=== PATIENT | male | born 1955 | race African-American/Black ===

== ENCOUNTER 2016-09-11 18:19 | Emergency (ER) | payer OTHER ==
--- NOTE | 2016-09-11 18:48 | ERRECORD ---
[facility] EMERGENCY RECORD HPI GENERAL (18:39 JLOY) CHIEF COMPLAINT: Patient presents for evaluation of Pt was brought in by the police for medical clearance. Pt with near non-stop profanities directed at the police and all medical staff who address him. Pt repeatedly yelling 'I refuse medical care'. Pt threatened the physician if he was examined. Pt with no visible or apparent difficulties or distress. PAST MEDICAL HISTORY (18:30 BDON) MEDICAL HISTORY: Notes: unknown immunization history, Past medical history includes gastrointestinal disease, cirrhosis, Hepatitis C, Past medical history includes history of hypertension. MALE SURGICAL HISTORY: possible colostomy....bag to abdomen ..patient refuses to answer questions or be assessed, Surgical history of hernia repair. PSYCHIATRIC HISTORY: No previous psychiatric history. SOCIAL HISTORY: Patient denies alcohol use, Patient has no smoking history, Patient currently uses drugs, abuses cocaine. KNOWN ALLERGIES No Known Allergies (Unconfirmed) No Known Drug Allergies CURRENT MEDICATIONS (18:27 BDON) unknown medication...patient not cooperative VITAL SIGNS (18:25 BDON) VITAL SIGNS: Resp: 18, Pain: 0, Time: 09/11/2016 18:25. PROBLEM LIST No recorded problems DIAGNOSIS (18:38 JLOY) FINAL: PRIMARY: ENC FOR OTHER GENERAL EXAMINATION. PRESCRIPTION No recorded prescriptions DISPOSITION PATIENT: Disposition Type: Eloped, Disposition: Against Medical Advice. (18:38 JLOY) Patient left the department. (19:01 BDON) Ferrer: BDON=HOLLI Bergeron, Mary JLOY=MD Kalen, Jerrell &a-1R&a+25V*p+0X*[id number]*c202B*c15G*c2P*p-0X&a-25V&a+1R Name: Bret Castro : 1955 M61 MedRec: [id number] AcctNum: [id number] Prepared: Se Sep 11, 2016 19:08 by Interface Page 1 of 1 pMD MTDD
--- NOTE | 2016-09-11 18:53 | PICIS ---
[facility] EMERGENCY RECORD TRIAGE ([facility] Sep 11, 2016 18:26 BDON) PATIENT: NAME: Bret Castro, AGE: 61, GENDER: male, : Tue1955, TIME OF GREET: TueSep 11, 2016 18:19, PREFERRED LANGUAGE: Kazakh, ETHNICITY: Not or , ECODE BILLING MAP: [facility], SSN: [id number], Zip Code: [address], KG WEIGHT: 61.23, PHONE: , , , PERSON ID: [id number], PCP: unknown. ([facility] Sep 11, 2016 18:26 BDON) TRIAGE NOTES: Medical clearance for [place], fdc clearance. Refuses medical evaluation and vital signs Patient cussing consistently screaming. ([facility] Sep 11, 2016 18:26 BDON) COMPLAINT: MEDICAL CLEARANCE. ([facility] Sep 11, 2016 18:26 BDON) ADMISSION: URGENCY: 5 [facility] [address], ADMISSION SOURCE: Home, TRANSPORT: LAW ENFORCEMENT, BED: TRIAGE. ([facility] Sep 11, 2016 18:26 BDON) ASSESSMENT: Assessment: Medicial clearance for [place], to go to fdc. Currently cussing, screaming with eratic behavior. (18:30 BDON) TREATMENTS IN PROGRESS: Treatments given Prehospital: unknown. (18:30 BDON) PROVIDERS: TRIAGE NURSE: Mary Bergeron RN. ([facility] Sep 11, 2016 18:26 BDON) VITAL SIGNS: Resp 18, Pain 0, Time 09/11/2016 18:25. (18:25 BDON) PREVIOUS VISIT ALLERGIES: No Known Drug Allergies. ([facility] Sep 11, 2016 18:26 BDON) No Known Drug Allergies. (18:30 BDON) KNOWN ALLERGIES No Known Allergies (Unconfirmed) No Known Drug Allergies CURRENT MEDICATIONS (18:27 BDON) unknown medication...patient not cooperative VITAL SIGNS (18:25 BDON) VITAL SIGNS: Resp: 18, Pain: 0, Time: 09/11/2016 18:25. NURSING ASSESSMENT: ABDOMEN (18:42 BDON) CONSTITUTIONAL: Patient arrives ambulatory, Gait steady, Patient appears comfortable, Patient, combative, Patient alert, Skin normal in color, refuses treatment, assessment or evaluation. Patient is alert, cognizant of surroundings and making insulting but coherent commentary. He demonstrates no respiratory distress, no problems with coordination. He is angry and identifies the source of anger suggesting he is aware of circumstances but resistant of actions. NURSING PROCEDURE: DISCHARGE NOTE (18:56 BDON) &a-1R&a+25V*p+0X*[id number]*c202B*c15G*c2P*p-0X&a-25V&a+1R Name: Bret Castro : 1955 M61 MedRec: [id number] AcctNum: [id number] Prepared: Sat Sep 11, 2016 19:15 by Interface Page 1 of 3 pMD [facility] EMERGENCY RECORD DISCHARGE: Patient signed out against medical advice, Notes: removed from ER by [place] [employer], remains combative with offending comments and sexual acts. Patient did not sign AMA screaming. NURSING PROCEDURE: NURSE NOTES (18:38 BDON) NURSES NOTES: Notes: It is not appropriate to document the degrading language, including male and female anatomy with sexual acts. He spoke about my mother and grandmother including the [employer]. HPI GENERAL (18:39 JLOY) CHIEF COMPLAINT: Patient presents for evaluation of Pt was brought in by the police for medical clearance. Pt with near non-stop profanities directed at the police and all medical staff who address him. Pt repeatedly yelling 'I refuse medical care'. Pt threatened the physician if he was examined. Pt with no visible or apparent difficulties or distress. PAST MEDICAL HISTORY (18:30 BDON) MEDICAL HISTORY: Notes: unknown immunization history, Past medical history includes gastrointestinal disease, cirrhosis, Hepatitis C, Past medical history includes history of hypertension. MALE SURGICAL HISTORY: possible colostomy....bag to abdomen ..patient refuses to answer questions or be assessed, Surgical history of hernia repair. PSYCHIATRIC HISTORY: No previous psychiatric history. SOCIAL HISTORY: Patient denies alcohol use, Patient has no smoking history, Patient currently uses drugs, abuses cocaine. EVENTS TRANSFER: Triage to Emergency Triage. (18:26 BDON) Emergency Triage to Emergency Room -05. (18:27 BDON) Removed from Emergency Emergency Room -05. (19:01 BDON) PROBLEM LIST No recorded problems DIAGNOSIS (18:38 JLOY) FINAL: PRIMARY: ENC FOR OTHER GENERAL EXAMINATION. DISPOSITION PATIENT: Disposition Type: Eloped, Disposition: Against Medical Advice. (18:38 JLOY) Patient left the department. (19:01 BDON) PRESCRIPTION No recorded prescriptions &a-1R&a+25V*p+0X*l1435B*c202B*c15G*c2P*p-0X&a-25V&a+1R Name: Bret Castro : 1955 M61 MedRec: [id number] AcctNum: [id number] Prepared: Sat Sep 11, 2016 19:15 by Interface Page 2 of 3 pMD [facility] EMERGENCY RECORD IMAGING RETURN TO [facility]: Image captured from scanner. (18:47 EPIE) PHYSICIAN NOTES: Image captured from scanner. (18:54 BDON) *SUPPLY CHARGE SHEET: Image captured from scanner. (18:58 BDON) ADMIN DIGITAL SIGNATURE: MD Higuera Joshua. (18:42 JLOY) MD Higuera Joshua. (18:53 JLOY) HOLLI Bergeron Bettye. (18:59 BDON) HOLLI Bergeron Bettye. (19:01 BDON) Ferrer: BDON=HOLLI Bergeron Bettye EPIE=HOLLI Merino, Estella JLOY=MD Higuera Joshua &a-1R&a+25V*p+0X*h7833B*c202B*c15G*c2P*p-0X&a-25V&a+1R Name: Bret Castro : 1955 M61 MedRec: [id number] AcctNum: [id number] Prepared: Sat Sep 11, 2016 19:15 by Interface Page 3 of 3 pMD MTDD
== END 2016-09-11 18:56 | disposition home or self-care (01) ==
LOC: NAV ERS 18:19
DX: Z00.00 Encounter for general adult medical examination without abnormal findings (principal); I10 Essential (primary) hypertension; K74.60 Unspecified cirrhosis of liver; B19.20 Unspecified viral hepatitis C without hepatic coma

== ENCOUNTER 2016-10-12 15:21 | Emergency (ER) | payer OTHER, SELFPAY ==
[2016-10-12 16:08] LABS: #Basophils 0.1 thou/uL (0.0-0.2); #Eosinphils 0.3 thou/uL (0.0-0.7); #Lymphocytes 2.2 thou/uL (1.20-3.40); #Monocytes 0.9 thou/uL (0.11-0.59); #Neutrophils 5.2 thou/uL (1.40-6.50); %Basophils 1.4 % (0.0-1.0); %Eosinophils 3.4 % (0.0-10.0); %Lymphocytes 25.2 % (21.0-51.0); %Monocytes 10.2 % (0.0-10.0); Hematocrit 23.3 % (42.0-52.0); Mean Platelet Volume 5.3 fL (7.4-10.4); Red Blood Cell (RBC) Count 2.32 mill/uL (4.70-6.10); White Blood Cell (WBC) Count 8.7 thou/uL (4.8-10.8)
[2016-10-12 16:18] LABS: PTT 29.5 SEC (22.9-36.1); Prothrombin Time 15.5 SEC (12.0-14.7)
[2016-10-12 16:24] LABS: ALT (SGPT) 39 U/L (0-55); AST (SGOT) 62 U/L (5-34); Alkaline Phosphatase 77 U/L (40-150); Anion Gap 14 mmol/L (10-20); BUN (Urea Nitrogen) 41 mg/dL (8.4-25.7); Bilirubin, Total 0.8 mg/dL (0.2-1.2); Calc. Creatinine Clearance 0 mL/min (70-130); Calcium 7.3 mg/dL (7.8-10.44); Carbon Dioxide 23 mmol/L (22-29); Chloride 109 mmol/L (98-107); Estimated GFR-MDRD 36; Globulin 3.9 g/dL (2.4-3.5); Lipase 68 U/L (8-78); Protein, Total 5.6 g/dL (6.0-8.3)
[2016-10-12 16:25] LABS: Troponin I 0.012 ng/mL (< 0.028)
--- NOTE | 2016-10-12 16:28 | RAD ---
SEMIUPRIGHT PORTABLE CHEST ONE VIEW: 10/12/16 HISTORY: 61-year-old male with chest pain and shortness of breath. The exam is very lordotic. Inspiration is very poor. The right lateral chest wall and right costophr enic angle are not included on this study and are not evaluated. The heart size is within normal elena its for this projection and inspiration. No confluent pneumonia. IMPRESSION: Very poor inspiratory, very lordotic view of the chest without overt acute intrathoracic disease inv olving the visualized portion. The right costophrenic angle and right lower chest are not completely included on this study. POS: [facility]
== END 2016-10-12 16:43 ==
LOC: NAV ERS 15:21
DX: R07.89 Other chest pain (principal); I11.0 Hypertensive heart disease with heart failure; I50.9 Heart failure, unspecified
CPT/HCPCS: 71010; 80053; 82553; 83690; 83880; 84484; 85025; 85610; 85730; 93005

== ENCOUNTER 2016-10-12 22:37 | Emergency (ER) | payer OTHER, SELFPAY ==
[2016-10-12] MEDS ORDERED: Pantoprazole 40 MG VIAL ONE (22:55)
[2016-10-12] MEDS ORDERED: Sodium Chloride 0.9% 1,000 ML ONE (22:55)
[2016-10-12] MEDS ORDERED: Ondansetron HCl/PF 4 MG/2 ML Vial ONE (22:55)
[2016-10-12 23:41] LABS: #Basophils 0.1 thou/uL (0.0-0.2); #Eosinphils 0.2 thou/uL (0.0-0.7); #Lymphocytes 1.9 thou/uL (1.20-3.40); #Monocytes 0.9 thou/uL (0.11-0.59); #Neutrophils 5.5 thou/uL (1.40-6.50); %Basophils 1.5 % (0.0-1.0); %Eosinophils 2.9 % (0.0-10.0); %Lymphocytes 22.2 % (21.0-51.0); %Monocytes 10.2 % (0.0-10.0); Mean Platelet Volume 5.8 fL (7.4-10.4); Red Blood Cell (RBC) Count 2.49 mill/uL (4.70-6.10); White Blood Cell (WBC) Count 8.7 thou/uL (4.8-10.8)
[2016-10-12 23:49] LABS: ALT (SGPT) 37 U/L (0-55); AST (SGOT) 56 U/L (5-34); Alkaline Phosphatase 76 U/L (40-150); Anion Gap 11 mmol/L (10-20); BUN (Urea Nitrogen) 40 mg/dL (8.4-25.7); Bilirubin, Total 0.7 mg/dL (0.2-1.2); Calc. Creatinine Clearance 0 mL/min (70-130); Calcium 7.3 mg/dL (7.8-10.44); Carbon Dioxide 27 mmol/L (22-29); Chloride 108 mmol/L (98-107); Estimated GFR-MDRD 40; Globulin 3.8 g/dL (2.4-3.5); Lipase 48 U/L (8-78); Protein, Total 5.4 g/dL (6.0-8.3)
[2016-10-12 23:50] LABS: Troponin I 0.022 ng/mL (< 0.028)
[2016-10-13] MEDS ORDERED: Ondansetron HCl/PF 4 MG/2 ML Vial ONE (01:04)
== END 2016-10-13 01:17 | disposition short-term general hospital (02) ==
LOC: NAV ERS 22:37
DX: K92.2 Gastrointestinal hemorrhage, unspecified (principal); I11.0 Hypertensive heart disease with heart failure; I50.9 Heart failure, unspecified; K74.60 Unspecified cirrhosis of liver
CPT/HCPCS: 82272; 83690; 86850; 86900; 86901; 96361; 96374; 96375; 96376; C9113; J2270; J2405; J7050

== ENCOUNTER 2016-10-17 13:29 | Emergency (ER) | payer OTHER ==
[2016-10-18 02:42] LABS: ALT (SGPT) 50 U/L (0-55); AST (SGOT) 87 U/L (5-34); Alkaline Phosphatase 83 U/L (40-150); Anion Gap 13 mmol/L (10-20); BUN (Urea Nitrogen) 43 mg/dL (8.4-25.7); Bilirubin, Total 0.6 mg/dL (0.2-1.2); Calc. Creatinine Clearance 0 mL/min (70-130); Calcium 7.5 mg/dL (7.8-10.44); Carbon Dioxide 22 mmol/L (22-29); Chloride 112 mmol/L (98-107); Estimated GFR-MDRD 33; Globulin 3.8 g/dL (2.4-3.5); Protein, Total 5.6 g/dL (6.0-8.3)
[2016-10-18 02:43] LABS: Red Blood Cell (RBC) Count 2.44 mill/uL (4.70-6.10); White Blood Cell (WBC) Count 7.5 thou/uL (4.8-10.8)
[2016-10-18 02:45] LABS: #Basophils 0.1 thou/uL (0.0-0.2); #Eosinphils 0.2 thou/uL (0.0-0.7); #Lymphocytes 2.4 thou/uL (1.20-3.40); #Monocytes 0.9 thou/uL (0.11-0.59); #Neutrophils 3.8 thou/uL (1.40-6.50); %Basophils 1.7 % (0.0-1.0); %Eosinophils 2.1 % (0.0-10.0); %Lymphocytes 32.2 % (21.0-51.0); %Monocytes 12.5 % (0.0-10.0); Mean Platelet Volume 5.7 fL (7.4-10.4)
[2016-10-18 02:49] LABS: Methadone Not Detected (NotDetected); Methamphetamine Not Detected (NotDetected)
== END 2016-10-17 17:40 | disposition short-term general hospital (02) ==
LOC: NAV ERS 13:29
DX: F14.121 Cocaine abuse with intoxication with delirium (principal); D64.9 Anemia, unspecified; K29.70 Gastritis, unspecified, without bleeding
CPT/HCPCS: 80306; 80307; 93005

== ENCOUNTER 2016-11-03 02:17 | Emergency (ER) | payer OTHER, SELFPAY ==
[2016-11-03 02:55] LABS: Bacteria/HPF Rare-Few HPF (None Seen); Bilirubin Negative (Negative); Blood, Urine Trace (Negative); Glucose, Urine (Dipstick) Negative (Negative); Ketone, Urine Negative (Negative); Nitrite Negative (Negative); Protein, Urine (Dipstick) 100 mg/dL (Neg-Trace); RBC/HPF 0-3 HPF (0-3); Squamous Epithelial 0-3 HPF (0-3); Urobilinogen 0.2 mg/dL (0.2-1.0); WBC/HPF 0-3 HPF (0-3)
[2016-11-03 02:57] LABS: #Basophils 0.1 thou/uL (0.0-0.2); #Eosinphils 0.2 thou/uL (0.0-0.7); #Lymphocytes 1.6 thou/uL (1.20-3.40); #Monocytes 0.7 thou/uL (0.11-0.59); #Neutrophils 6.6 thou/uL (1.40-6.50); %Basophils 0.6 % (0.0-1.0); %Eosinophils 1.8 % (0.0-10.0); %Lymphocytes 17.3 % (21.0-51.0); %Monocytes 7.8 % (0.0-10.0); Hematocrit 24.3 % (42.0-52.0); Mean Platelet Volume 7.7 fL (7.4-10.4); Red Blood Cell (RBC) Count 2.53 mill/uL (4.70-6.10); White Blood Cell (WBC) Count 9.1 thou/uL (4.8-10.8)
[2016-11-03 03:08] LABS: Methadone Not Detected (NotDetected); Methamphetamine Not Detected (NotDetected)
[2016-11-03 03:12] LABS: ALT (SGPT) 51 U/L (0-55); AST (SGOT) 72 U/L (5-34); Alkaline Phosphatase 107 U/L (40-150); Anion Gap 14 mmol/L (10-20); BUN (Urea Nitrogen) 34 mg/dL (8.4-25.7); Bilirubin, Total 0.7 mg/dL (0.2-1.2); Calc. Creatinine Clearance 0 mL/min (70-130); Calcium 7.6 mg/dL (7.8-10.44); Carbon Dioxide 17 mmol/L (22-29); Chloride 116 mmol/L (98-107); Estimated GFR-MDRD 47; Globulin 4.2 g/dL (2.4-3.5); Protein, Total 6.4 g/dL (6.0-8.3)
[2016-11-03] MEDS ORDERED: Ciprofloxacin 500 MG TAB ONE (03:36)
[2016-11-03] MEDS ORDERED: Furosemide 40 MG TAB ONE (03:38)
== END 2016-11-03 03:50 ==
LOC: NAV ERS 02:17
DX: N39.0 Urinary tract infection, site not specified (principal); F14.10 Cocaine abuse, uncomplicated; I12.9 Hypertensive chronic kidney disease with stage 1 through stage 4 chronic kidney disease, or unspecified chronic kidney disease; N18.3 Chronic kidney disease, stage 3 (moderate)
CPT/HCPCS: 36415; 80053; 80306; 80307; 81003; 81015; 82140; 83880; 85025; 99283

== ENCOUNTER 2016-11-06 01:58 | Emergency (ER) | payer OTHER ==
[2016-11-06 03:07] LABS: #Basophils 0.1 thou/uL (0.0-0.2); #Eosinphils 0.2 thou/uL (0.0-0.7); #Lymphocytes 1.6 thou/uL (1.20-3.40); #Monocytes 0.5 thou/uL (0.11-0.59); #Neutrophils 3.2 thou/uL (1.40-6.50); %Basophils 1.5 % (0.0-1.0); %Lymphocytes 29.2 % (21.0-51.0); Anisocytosis SLIGHT = 6-15 cells (100X) (0-5/hpf); Hematocrit 20.3 % (42.0-52.0); Macrocytosis SLIGHT = 6-15 cells (100X) (0-5/hpf); Mean Platelet Volume 6.6 fL (7.4-10.4); Red Blood Cell (RBC) Count 2.14 mill/uL (4.70-6.10); White Blood Cell (WBC) Count 5.5 thou/uL (4.8-10.8)
[2016-11-06 03:11] LABS: ALT (SGPT) 36 U/L (0-55); AST (SGOT) 48 U/L (5-34); Alkaline Phosphatase 96 U/L (40-150); Anion Gap 10 mmol/L (10-20); BUN (Urea Nitrogen) 30 mg/dL (8.4-25.7); Bilirubin, Total 0.7 mg/dL (0.2-1.2); Calc. Creatinine Clearance 0 mL/min (70-130); Calcium 7.3 mg/dL (7.8-10.44); Carbon Dioxide 20 mmol/L (22-29); Chloride 117 mmol/L (98-107); Estimated GFR-MDRD 65; Globulin 3.6 g/dL (2.4-3.5); Lipase 147 U/L (8-78); Protein, Total 5.6 g/dL (6.0-8.3)
[2016-11-06 03:24] LABS: Bilirubin Negative (Negative); Blood, Urine Small (Negative); Glucose, Urine (Dipstick) Negative (Negative); Ketone, Urine Negative (Negative); Nitrite Negative (Negative); Protein, Urine (Dipstick) 100 mg/dL (Neg-Trace); Urobilinogen 0.2 mg/dL (0.2-1.0)
[2016-11-06 03:28] LABS: Bacteria/HPF None Seen HPF (None Seen); RBC/HPF 0-3 HPF (0-3); Squamous Epithelial None Seen HPF (0-3); WBC/HPF 0-3 HPF (0-3)
[2016-11-06 04:10] LABS: Prothrombin Time 16.3 SEC (12.0-14.7)
== END 2016-11-06 04:15 | disposition short-term general hospital (02) ==
LOC: NAV ERS 01:58
DX: K92.2 Gastrointestinal hemorrhage, unspecified (principal); R18.8 Other ascites; K74.60 Unspecified cirrhosis of liver; I12.0 Hypertensive chronic kidney disease with stage 5 chronic kidney disease or end stage renal disease; N18.3 Chronic kidney disease, stage 3 (moderate); F17.210 Nicotine dependence, cigarettes, uncomplicated; Z79.899 Other long term (current) drug therapy
CPT/HCPCS: 80053; 81003; 81015; 83690; 85025; 85610; 99285

== ENCOUNTER 2016-11-30 01:40 | Emergency (ER) | payer OTHER, SELFPAY ==
[2016-11-30 02:40] LABS: Bilirubin Negative (Negative); Blood, Urine Trace (Negative); Clarity Clear (Clear); Glucose, Urine (Dipstick) Negative (Negative); Leukocyte Negative (Negative); Nitrite Negative (Negative); Protein, Urine (Dipstick) 100 mg/dL (Neg-Trace); Specific Gravity, Urine 1.015 (1.005-1.030); Urobilinogen 0.2 mg/dL (0.2-1.0)
[2016-11-30 02:42] LABS: #Basophils 0.1 thou/uL (0.0-0.2); #Lymphocytes 1.4 thou/uL (1.20-3.40); #Neutrophils 5.1 thou/uL (1.40-6.50); %Basophils 0.7 % (0.0-1.0); %Eosinophils 0.6 % (0.0-10.0); %Lymphocytes 18.4 % (21.0-51.0); %Monocytes 13.1 % (0.0-10.0); %Neutrophils 67.2 % (42.0-75.0); Hemoglobin 9.8 g/dL (14.0-18.0); Mean Corpuscular HGB CONC 34.2 g/dL (32.0-36.0); Mean Corpuscular Hemoglobin 32.8 pg (27.0-31.0); Mean Corpuscular Volume 95.7 fl (80.0-94.0); Mean Platelet Volume 7.1 fL (7.4-10.4); PLT Morphology Comment Appears Decreased; Platelet Count 71 thou/uL (130-400); RBC Distribution Width 16.8 % (11.5-14.5); RBC Morphology Normal; Red Blood Cell (RBC) Count 2.99 mill/uL (4.70-6.10); White Blood Cell (WBC) Count 7.6 thou/uL (4.8-10.8)
[2016-11-30 02:45] LABS: INR-International Normal Ratio 1.4; MDiff Complete? YES; Manual Diff?? NO; PTT 33.1 SEC (22.9-36.1); Prothrombin Time 17.3 SEC (12.0-14.7)
[2016-11-30] MEDS ORDERED: Furosemide 40 MG/4 ML VIAL ONE (02:45)
[2016-11-30 02:47] LABS: Bacteria/HPF None Seen HPF (None Seen); RBC/HPF 0-3 HPF (0-3); Squamous Epithelial 0-3 HPF (0-3); WBC/HPF None Seen HPF (0-3)
[2016-11-30 02:48] LABS: Amphetamine Not Detected (NotDetected); Barbiturates Screen Not Detected (NotDetected); Benzodiazepine Screen Not Detected (NotDetected); Cocaine Metabolite Screen Not Detected (NotDetected); Medtox Control Line Valid? VALID (VALID); Methadone Not Detected (NotDetected); Methamphetamine Not Detected (NotDetected); Opiate Screen Not Detected (NotDetected); Oxycodone Screen Not Detected (NotDetected); Phencyclidine (PCP) Not Detected (NotDetected); THC/Cannabinoid Screen Not Detected (NotDetected); Tricyclic Screen Not Detected (NotDetected)
[2016-11-30 02:50] LABS: ALT (SGPT) 75 U/L (0-55); AST (SGOT) 115 U/L (5-34); Albumin 1.9 g/dL (3.5-5.0); Alkaline Phosphatase 210 U/L (40-150); Anion Gap 13 mmol/L (10-20); BUN (Urea Nitrogen) 36 mg/dL (8.4-25.7); Calc. Creatinine Clearance 0 mL/min (70-130); Calcium 7.4 mg/dL (7.8-10.44); Carbon Dioxide 15 mmol/L (22-29); Chloride 118 mmol/L (98-107); Estimated GFR-MDRD 38; Globulin 4.4 g/dL (2.4-3.5); Glucose 107 mg/dL (70-105); Potassium 4.3 mmol/L (3.5-5.1); Protein, Total 6.3 g/dL (6.0-8.3); Sodium 142 mmol/L (136-145)
[2016-11-30 02:53] LABS: CKMB 2.6 ng/mL (0-6.6); Troponin I Less than 0.010 ng/mL (< 0.028)
--- NOTE | 2016-11-30 07:59 | RAD ---
SINGLE VIEW OF CHEST: Date: 11/30/16 COMPARISON: 11/24/16. HISTORY: Leg swelling/edema. FINDINGS: Single view of the chest shows a normal sized cardiomediastinal silhouette. There is no evidence of consolidation, mass, or pleural effusion. The bones are unremarkable. IMPRESSION: No evidence of acute cardiopulmonary disease. POS: [facility]
== END 2016-11-30 03:35 | disposition home or self-care (01) ==
LOC: NAV ERS 01:40
DX: R60.9 Edema, unspecified (principal); I12.9 Hypertensive chronic kidney disease with stage 1 through stage 4 chronic kidney disease, or unspecified chronic kidney disease; N18.3 Chronic kidney disease, stage 3 (moderate); F17.200 Nicotine dependence, unspecified, uncomplicated
CPT/HCPCS: 36415; 71010; 80053; 80306; 81003; 81015; 82140; 82553; 83880; 84484; 85025; 85610; 85730; 96374; J1940

== ENCOUNTER 2016-12-03 20:53 | Emergency (ER) | payer SELFPAY | END 2016-12-03 23:45 | disposition home or self-care (01) | LOC: NAV ERS 20:53 | DX: K73.9 Chronic hepatitis, unspecified (principal); D64.9 Anemia, unspecified; I12.9 Hypertensive chronic kidney disease with stage 1 through stage 4 chronic kidney disease, or unspecified chronic kidney disease; N18.3 Chronic kidney disease, stage 3 (moderate); F17.200 Nicotine dependence, unspecified, uncomplicated | CPT/HCPCS: 99284 ==

== ENCOUNTER 2016-12-04 08:20 | Emergency (ER) | payer SELFPAY ==
[2016-12-04 09:13] LABS: #Basophils 0.1 thou/uL (0.0-0.2); #Eosinphils 0.2 thou/uL (0.0-0.7); #Lymphocytes 1.4 thou/uL (1.20-3.40); #Monocytes 0.5 thou/uL (0.11-0.59); #Neutrophils 6.7 thou/uL (1.40-6.50); %Basophils 0.8 % (0.0-1.0); %Lymphocytes 15.9 % (21.0-51.0); %Monocytes 5.9 % (0.0-10.0); %Neutrophils 75.4 % (42.0-75.0); Hemoglobin 9.4 g/dL (14.0-18.0); Mean Corpuscular HGB CONC 33.6 g/dL (32.0-36.0); Mean Corpuscular Hemoglobin 30.9 pg (27.0-31.0); Mean Corpuscular Volume 91.8 fl (80.0-94.0); Mean Platelet Volume 7.5 fL (7.4-10.4); Platelet Count 80 thou/uL (130-400); RBC Distribution Width 16.6 % (11.5-14.5); Red Blood Cell (RBC) Count 3.04 mill/uL (4.70-6.10); White Blood Cell (WBC) Count 8.8 thou/uL (4.8-10.8)
[2016-12-04 09:14] LABS: MDiff Complete? YES
[2016-12-04 09:26] LABS: ALT (SGPT) 53 U/L (0-55); AST (SGOT) 43 U/L (5-34); Albumin 1.9 g/dL (3.5-5.0); Alkaline Phosphatase 170 U/L (40-150); Anion Gap 14 mmol/L (10-20); BUN (Urea Nitrogen) 48 mg/dL (8.4-25.7); Bilirubin, Total 0.8 mg/dL (0.2-1.2); Calc. Creatinine Clearance 0 mL/min (70-130); Calcium 7.8 mg/dL (7.8-10.44); Carbon Dioxide 19 mmol/L (22-29); Chloride 114 mmol/L (98-107); Estimated GFR-MDRD 46; Globulin 4.4 g/dL (2.4-3.5); Glucose 67 mg/dL (70-105); Lipase 79 U/L (8-78); Potassium 4.7 mmol/L (3.5-5.1); Protein, Total 6.3 g/dL (6.0-8.3); Sodium 142 mmol/L (136-145)
[2016-12-04] MEDS ORDERED: Dextrose 5 %-0.45 % NaCl 1,000 ML ONE (10:20)
[2016-12-04 14:07] LABS: CKMB 3.7 ng/mL (0-6.6); Troponin I Less than 0.010 ng/mL (< 0.028)
--- NOTE | 2016-12-04 15:37 | CT ---
NONCONTRAST CT OF THE BRAIN 12/04/16 INDICATION: Generalized weakness and altered mental status. FINDINGS: No acute intracranial abnormality. Mild generalized cerebral atrophy is similar. There is partial vi sualization of the paranasal sinuses. There is suspicion for some opacification within portions of t he right maxillary sinus which may reflect underlying paranasal sinus disease. IMPRESSION: No definite acute intracranial abnormality demonstrated. POS: [facility]
--- NOTE | 2016-12-04 15:41 | RAD ---
AP VIEW OF CHEST: Date: 12/04/16 INDICATION: Generalized weakness and altered mental status. IMPRESSION: No acute cardiopulmonary abnormality. Low lung volumes. COMMENTS; Examination is not appreciably changed from the comparison dated 11/30/16. POS: [facility]
== END 2016-12-04 15:10 | disposition short-term general hospital (02) ==
LOC: NAV ERS 08:20
DX: R41.82 Altered mental status, unspecified (principal); R18.8 Other ascites; N18.3 Chronic kidney disease, stage 3 (moderate); I12.9 Hypertensive chronic kidney disease with stage 1 through stage 4 chronic kidney disease, or unspecified chronic kidney disease; K74.60 Unspecified cirrhosis of liver; F17.210 Nicotine dependence, cigarettes, uncomplicated; Z79.899 Other long term (current) drug therapy
CPT/HCPCS: 51702; 70450; 71010; 80053; 82140; 82550; 82553; 83690; 83880; 84484; 85025; 93005; 96360; 96361; J7042